=== PATIENT | male | born 1965 | race Hispanic/Latino ===

== ENCOUNTER 2020-05-09 20:11 | Emergency (ER) | payer OTHER | END 2020-05-09 20:59 | disposition home or self-care (01) | LOC: EDH 20:11 | DX: S81.812A Laceration without foreign body, left lower leg, initial encounter (principal); E11.9 Type 2 diabetes mellitus without complications; I10 Essential (primary) hypertension; Z79.84 Long term (current) use of oral hypoglycemic drugs; W22.8XXA Striking against or struck by other objects, initial encounter; Y93.01 Activity, walking, marching and hiking; Y92.89 Other specified places as the place of occurrence of the external cause; Y99.8 Other external cause status | CPT/HCPCS: 99282 ==

== ENCOUNTER 2024-04-26 20:36 | Emergency (ER) | payer BC, OTHER ==
[~2024-04-26] VITALS: Ht 162.6 cm; Wt 93.0 kg
[2024-04-26] MEDS: OCTYL 2-CYANOACRYLATE 1 EACH TP ONE (21:22)
[2024-04-26] MEDS: OCTYL 2-CYANOACRYLATE 1 EACH TP SCH (21:45)
[2024-04-26] MEDS ORDERED: CEPH500B PO (23:49)
[2024-04-27 00:14] VITALS: BP 146/79; PULSE 94; RESP 18; O2SAT 98
== END 2024-04-27 00:16 | disposition home or self-care (01) ==
LOC: EDH 20:36
DX: S01.01XA Laceration without foreign body of scalp, initial encounter (principal); I10 Essential (primary) hypertension; E11.9 Type 2 diabetes mellitus without complications; W50.0XXA Accidental hit or strike by another person, initial encounter; Y93.89 Activity, other specified; Y92.89 Other specified places as the place of occurrence of the external cause; Y99.8 Other external cause status
CPT/HCPCS: 12001; 70450; 72125; 73070